=== PATIENT | male | born 1990 | race Two or more races ===

== ENCOUNTER 2025-04-04 23:03 | Emergency (ER) | payer OTHER, SELFPAY ==
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
[2025-04-04 23:05] VITALS: BP 113/83; PULSE 74; RESP 18; TEMP 36.6; O2SAT 100
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
[2025-04-05 02:08] VITALS: BP 113/83; PULSE 74; RESP 18; O2SAT 100
[2025-04-05] MEDS: IBUPROFEN 600 MG TABLET PO (02:10)
== END 2025-04-05 02:15 | disposition home or self-care (01) ==
PROVIDERS: Emergency Provider Physician Assistant
DX: S16.1XXA Strain of muscle, fascia and tendon at neck level, initial encounter (principal); S80.812A Abrasion, left lower leg, initial encounter; V49.40XA Driver injured in collision with unspecified motor vehicles in traffic accident, initial encounter; W22.10XA Striking against or struck by unspecified automobile airbag, initial encounter
CPT/HCPCS: 70450; 72125; 73030; 73590; 99284; A9270; L0140